=== PATIENT | female | born 1985 | race Caucasian/White ===

== ENCOUNTER 2017-07-29 10:37 | Outpatient (CLI) | payer OTHER ==
--- NOTE | 2017-07-29 16:15 | ULT ---
EXAM: OB ULTRASOUND: HISTORY: A 20-week exam. Evaluate anatomy, size and dates. COMPARISON: None. TECHNIQUE: Sagittal and transverse imaging of the gravid uterus is performed. FINDINGS: Single intrauterine gestation, vertex presentation. heart tones with a rate of 155 b.p.m. Cervical length is 4.9 cm. Posterior placenta. No definite previa. Biometry: BPD 4.44 cm, 19 weeks 3 days Head circumference 17.72 cm, 20 weeks 1 day Abdominal circumference 15.52 cm, 20 weeks 5 days Femur length 3.42 cm, 20 weeks 5 days Average by sonography is 20 weeks 1 day. Estimated weight is 366 gm. Survey: The following structures are adequately demonstrated: lateral ventricle, cord insertion, 3-vessel c ord, nose and lips, and urinary bladder. Limited evaluation of the cerebellum, 4-chamber heart, stomach, spine, and kidneys. Visualized extr emities appear to be unremarkable. IMPRESSION: 1. Single intrauterine gestation with heart tones. Average by sonography is 20 weeks 1 day. 2. survey as above. Examination is limited due to patient body habitus. POS: RIGO
== END 2017-07-29 10:38 | disposition home or self-care (01) ==
LOC: ULT 10:37
PROVIDERS: ATTEND Family Medicine
DX: Z34.82 Encounter for supervision of other normal pregnancy, second trimester (principal); Z3A.19 19 weeks gestation of pregnancy
CPT/HCPCS: 76805

== ENCOUNTER 2017-10-22 14:06 | Outpatient (CLI) | payer OTHER | END 2017-10-22 14:07 | disposition home or self-care (01) | LOC: BICULT 14:06 | PROVIDERS: ATTEND Family Medicine | DX: O36.63X0 Maternal care for excessive fetal growth, third trimester, not applicable or unspecified (principal); Z3A.34 34 weeks gestation of pregnancy | CPT/HCPCS: 36415; 76816; 82951; 82952 ==

== ENCOUNTER 2017-12-09 21:49 | Inpatient (IN) | payer BC, OTHER ==
--- NOTE | 2017-12-09 17:09 | HP ---
HISTORY OF PRESENT ILLNESS: This is a 32-year-old white female G3, P1-0-1-1 at 39-week gestation wit h EDC of 12/13/2017. Patient's course has been uncomplicated. She has a history of 1 spont aneous AB as well as 1 vaginal delivery at 40 weeks, uncomplicated. She lives [address] and concerned about delivering out of the hospital. She is being admitted for an elective Cytote c/Pitocin induction. PAST MEDICAL HISTORY: 1. ADD. 2. Tobacco history which patient has quit. PAST SURGICAL HISTORY: Spontaneous vaginal delivery x1. FAMILY HISTORY: Paternal grandfather with lung cancer. Paternal grandmother with diabetes. SOCIAL HISTORY: She is . She does not smoke, does not drink. She has one son Sticker and a stepson name, Twister. REVIEW OF SYSTEMS: As above. PHYSICAL EXAMINATION: VITAL SIGNS: Stable, afebrile. HEENT: Clear. HEART: Clear. LUNGS: Clear. ABDOMEN: Gravid. EXTREMITIES: With no edema. LABORATORY DATA: GBS negative, 3-hour GTT negative, HIV negative. CBC normal. One-hour HPV negativ e. Pap smear normal. GC chlamydia negative. Urine culture negative, hepatitis B negative, HIV nega tive, B positive blood type, RPR negative, rubella immune. TSH normal. ASSESSMENT: 1. Term . 2. Lives 1 hour away. 3. History of one normal vaginal delivery. PLAN: 1. Routine L&D orders. 2. Routine anesthesia orders. 3. Cytotec plus Pitocin induction. Anticipate normal vaginal delivery.
[2017-12-09] MEDS ORDERED: Ibuprofen 800 MG TAB PO PRN (22:15)
[2017-12-09] MEDS ORDERED: Zolpidem Tartrate 5 MG TAB PO PRN (22:15)
[2017-12-09] MEDS ORDERED: Acetaminophen 500 MG TAB PO PRN (22:15)
[2017-12-09] MEDS ORDERED: LR 500 ML/Oxytocin 10 units 500 ML IV SCH (22:15)
[2017-12-09] MEDS ORDERED: LR / Pitocin 40 units/1000 ml 1,000 ML IV PRN (22:15)
[2017-12-09] MEDS ORDERED: Ondansetron HCl/PF 4 MG/2 ML Vial IVP PRN (22:15)
[2017-12-09] MEDS ORDERED: Misoprostol 200 MCG TAB PR PRN (22:15)
[2017-12-09] MEDS ORDERED: Promethazine HCl 25 MG/ML VIAL IM PRN (22:15)
[2017-12-09] MEDS ORDERED: Acetaminophen/Codeine 30-300mg Tablet PO PRN (22:15)
[2017-12-09] MEDS ORDERED: HYDROcodone/Acetaminophen 5/325 mg Tablet PO PRN (22:15)
[2017-12-09] MEDS ORDERED: Lidocaine 1% (PF) 30 ML VIAL SC PRN (22:15)
[2017-12-09 22:26] VITALS: BMI 37.4
[2017-12-09] MEDS: Lactated Ringer's 1,000 ML IV SCH (22:41)
[2017-12-09] MEDS: Misoprostol 100 MCG TAB VAG SCH (22:51)
[2017-12-09 22:54] LABS: Hemoglobin 11.4 g/dL (12.0-16.0); Mean Corpuscular HGB CONC 34.4 g/dL (32.0-36.0); Mean Corpuscular Hemoglobin 30.8 pg (27.0-31.0); Mean Corpuscular Volume 89.4 fl (81.0-99.0); Mean Platelet Volume 8.4 fL (7.4-10.4); Platelet Count 191 thou/uL (130-400); RBC Distribution Width 11.9 % (11.5-14.5); White Blood Cell (WBC) Count 8.4 thou/uL (4.8-10.8)
[2017-12-09 23:31] LABS: HBSAg Index 0.15 S/CO (0-0.99); Hep B Surf Ag Non-Reactive S/CO (NonReactive); Syphilis Antibody Nonreactive (Nonreactive); Syphilis Antibody Index 0.07 S/CO (<1.00 Non-Reactive)
[2017-12-10] MEDS ORDERED: Bupivacaine 0.5% 20 ML, Fentanyl 400 MCG in Sodium Chloride 0.9% 72 ML EPIDURAL SCH (03:15)
[2017-12-10] MEDS ORDERED: Eucerin (Mineral Oil/Petrolatum,White) 30 gm Jar TOP PRN ×2 (03:47→19:37)
[2017-12-10] MEDS ORDERED: diphenhydrAMINE 50 MG/ML VIAL IVP PRN ×2 (03:47→19:37)
[2017-12-10] MEDS ORDERED: Acetaminophen 325 MG TAB PO PRN (03:47)
[2017-12-10] MEDS ORDERED: Ondansetron HCl/PF 4 MG/2 ML Vial IVP PRN ×4 (03:47→19:37)
[2017-12-10] MEDS ORDERED: Promethazine HCl 25 MG/ML VIAL IM PRN ×3 (03:47→19:37)
[2017-12-10] MEDS ORDERED: Lactated Ringer's 500 ML IV PRN (03:47)
[2017-12-10] MEDS ORDERED: Naloxone HCl 0.4 mg/ml Vial IVP PRN ×4 (03:47→19:37)
[2017-12-10] MEDS ORDERED: ePHEDrine/0.9% NaCl/PF SYRINGE 50 mg/10 ml SLOW IVP PRN (03:47)
[2017-12-10] MEDS ORDERED: Communication Order-Pharmacy FS SCH ×2 (04:00→19:45)
[2017-12-10] MEDS: Lactated Ringer's 1,000 ML IV SCH ×2 (04:04→11:27)
[2017-12-10] MEDS: Misoprostol 100 MCG TAB VAG SCH ×5 (05:50→23:51)
[2017-12-10] MEDS: Fentanyl 4mcg/Marcaine 0.1% Cassette 100 ML EPIDURAL SCH ×2 (10:32→16:47)
[2017-12-10] MEDS ORDERED: Dexamethasone 20 MG/5 ML VIAL ONE (14:51)
[2017-12-10] MEDS ORDERED: Ondansetron HCl/PF 4 MG/2 ML Vial ONE ×2 (14:51→18:44)
[2017-12-10] MEDS ORDERED: Ketorolac Tromethamine 30 MG/ML VIAL ONE ×3 (14:51→20:25)
[2017-12-10] MEDS ORDERED: Lidocaine 2% MPF 10 ML AMP (For Epidural Use) ONE (14:51)
[2017-12-10] MEDS ORDERED: Lidocaine 1% PF 5 ML VIAL ONE (14:51)
[2017-12-10] MEDS ORDERED: Bicitra 30 ML UDCUP PO SCH (18:00)
[2017-12-10] MEDS ORDERED: CEFAZOLIN/Water 2 GM/20 ML SYRINGE SLOW IVP SCH (18:00)
[2017-12-10] MEDS ORDERED: Lidocaine 2% 10 ML INJ ONE (18:19)
[2017-12-10] MEDS ORDERED: Azithromycin 500 MG in Sodium Chloride 0.9% 250 ML 250 ML IVPB SCH (18:30)
[2017-12-10] MEDS ORDERED: Oxytocin 10 UNITS/ML VIAL ONE (18:44)
[2017-12-10] MEDS ORDERED: Dexamethasone 4 mg/ml Vial ONE (18:44)
[2017-12-10] MEDS ORDERED: Morphine PF 1 MG/ML SYR ONE (19:03)
[2017-12-10] MEDS ORDERED: Promethazine HCl 25 MG/ML VIAL SLOW IVP PRN (19:36)
[2017-12-10] MEDS ORDERED: Meperidine HCl/PF 25 MG/ML VIAL SLOW IVP PRN (19:37)
[2017-12-10] MEDS ORDERED: Naloxone HCl 0.4 mg/ml Vial IV PRN (19:37)
[2017-12-10] MEDS ORDERED: Ketorolac Tromethamine 30 MG/ML VIAL IVP PRN (19:37)
[2017-12-10] MEDS ORDERED: Promethazine HCl 25 MG SUPP PR PRN (19:37)
[2017-12-10] MEDS ORDERED: HYDROmorphone 2 MG/ML VIAL SLOW IVP PRN (19:37)
[2017-12-10] MEDS ORDERED: Ketorolac Tromethamine 30 MG/ML VIAL IVP SCH (19:45)
[2017-12-10] MEDS ORDERED: Lanolin Ointment 7 GM TUBE TOP PRN (21:20)
[2017-12-10] MEDS ORDERED: LR w/ Pitocin 40 units/1000 ML BAG IV SCH (21:20)
[2017-12-10] MEDS ORDERED: Adacel (T-DAP) 0.5 ML VIAL IM ONE (21:20)
--- NOTE | 2017-12-10 22:28 | OP ---
DATE OF PROCEDURE: 12/10/2017 PREOPERATIVE DIAGNOSES: 1. Term . 2. Failure to progress. POSTOPERATIVE DIAGNOSES: 1. Term . 2. Failure to progress. 3. Asynclitic presentation. Cord around the body x1, around the arm x1. SURGEON: Winston Handley M.D. QUALITY FACILITATOR: Severo Boone M.D. ANESTHESIA: Epidural. PROCEDURE IN DETAIL: This 32-year-old white female G3, P1 taken to the operating room. She was plac ed in supine position. The abdomen prepped and draped sterilely. Pfannenstiel incision was made. S ubcutaneous was dissected down to fascia. Fascia was opened without incident. Peritoneum was opened by blunt dissection. Bladder flap was dissected inferiorly. Low transverse uterine incision was ma de. Fluid was noted to be clear. Delivered the baby from the asynclitic presentation. Caput is on the parietal lobe of the scalp. Baby did breathe and cry spontaneously upon delivery. Delivered [facility], 3-vessel intact. Closed the uterus in 1 layer of #1 Monocryl. Two [id number] stitches w ere placed to control bleeding. The abdomen was evacuated of all clots. The Christopher O ring was remov ed. The peritoneum was closed with 2-0 chromic. The fascia was closed with 0 Vicryl. The subcu wit h 2-0 chromic and the skin was closed with rachid. Estimated blood loss was 900 mL. Mother and bab y did well.
[2017-12-11 06:06] LABS: Hemoglobin 9.5 g/dL (12.0-16.0); Mean Corpuscular HGB CONC 33.4 g/dL (32.0-36.0); Mean Corpuscular Hemoglobin 30.4 pg (27.0-31.0); Mean Corpuscular Volume 90.9 fl (81.0-99.0); Mean Platelet Volume 8.6 fL (7.4-10.4); Platelet Count 164 thou/uL (130-400); RBC Distribution Width 11.9 % (11.5-14.5); Red Blood Cell (RBC) Count 3.11 mill/uL (4.20-5.40); White Blood Cell (WBC) Count 13.5 thou/uL (4.8-10.8)
[2017-12-11] MEDS: Ferrous Sulfate 325 MG TAB PO SCH ×2 (08:46→21:08)
[2017-12-11] MEDS: Prenatal Vitamin 1 TAB PO SCH (08:47)
[2017-12-11] MEDS ORDERED: Sodium Chloride 0.9% 10 ML ONE (08:59)
--- NOTE | 2017-12-11 13:51 | ADD-OP ---
DATE OF ENCOUNTER: 12/10/2017 This is documentation that Dr. Severo Boone was casting assistant on a performed by Dr. Winston Handley.
[2017-12-11] MEDS: HYDROcodone/Acetaminophen 5/325 mg Tablet PO PRN (17:40)
[2017-12-11] MEDS: Ibuprofen 800 MG TAB PO SCH (21:08)
[2017-12-11] MEDS: Docusate Calcium (SURFAK) 240 MG CAP PO SCH (21:08)
[2017-12-12] MEDS: Ibuprofen 800 MG TAB PO SCH ×3 (05:51→21:13)
[2017-12-12] MEDS: Docusate Calcium (SURFAK) 240 MG CAP PO SCH ×2 (09:14→21:13)
[2017-12-12] MEDS: Ferrous Sulfate 325 MG TAB PO SCH ×2 (09:14→21:13)
[2017-12-12] MEDS: Prenatal Vitamin 1 TAB PO SCH (09:14)
[2017-12-12] MEDS: HYDROcodone/Acetaminophen 5/325 mg Tablet PO PRN ×2 (09:24→21:13)
[2017-12-13] MEDS: Ibuprofen 800 MG TAB PO SCH (05:28)
[2017-12-13] MEDS: HYDROcodone/Acetaminophen 5/325 mg Tablet PO PRN (05:29)
[2017-12-13 08:02] VITALS: BP 109/61; TEMP 98
--- NOTE | 2017-12-13 08:07 | DIS ---
DISCHARGE DIAGNOSES: 1. Term . 2. Failure to progress. 3. Asynclitic presentation. PROCEDURE: Primary low transverse section. SURGEON: Winston Handley M.D. POSTDOCTORAL RESEARCH ASSOCIATE: Dr. Boone. BRIEF HISTORY: This is a 32-year-old white female with an uncomplicated course. She presented at 40 weeks for a Cytotec/Pitocin induction. She lives 1 hour away and was concerned about home delivery. HOSPITAL COURSE: The patient was admitted. She was placed on Cytotec and Pitocin. She progressed t o complete. However, she had failure to progress. heart tones remained reactive. The patient underwent a primary section without complication. Mother and baby did very well. The baby was noted to be in asynclitic presentation. Baby had failed to descend. Postoperatively the patien t did well. She is now ready for discharge. Vital signs stable, afebrile. Discharge H&H is 9.5 and 28.3. The patient will follow up in the office in the next 2 weeks. Hydrocodone will be called out to her pharmacy for pain control. Her wound has also remained clear without drainage throughout her stay.
[2017-12-13] MEDS: Docusate Calcium (SURFAK) 240 MG CAP PO SCH (08:08)
[2017-12-13] MEDS: Prenatal Vitamin 1 TAB PO SCH (08:08)
[2017-12-13] MEDS: Ferrous Sulfate 325 MG TAB PO SCH (08:08)
== END 2017-12-13 11:00 | disposition home or self-care (01) | DRG 766 ==
LOC: L&D 21:49 → 3SW 12-10 21:43
PROVIDERS: ADMIT Family Medicine; ATTEND Family Medicine
PROC: 3E033VJ Introduction of Other Hormone into Peripheral Vein, Percutaneous Approach (ICD-10-PCS; principal; 2017-12-09)
PROC: 3E0P7VZ Introduction of Hormone into Female Reproductive, Via Natural or Artificial Opening (ICD-10-PCS; 2017-12-09)
PROC: 10D00Z1 Extraction of Products of Conception, Low, Open Approach (ICD-10-PCS; 2017-12-10)
PROC: 10907ZC Drainage of Amniotic Fluid, Therapeutic from Products of Conception, Via Natural or Artificial Opening (ICD-10-PCS; 2017-12-10)
DX: O99.343 Other mental disorders complicating pregnancy, third trimester (principal); F98.8 Other specified behavioral and emotional disorders with onset usually occurring in childhood and adolescence; O62.0 Primary inadequate contractions; O69.81X0 Labor and delivery complicated by cord around neck, without compression, not applicable or unspecified; Z3A.39 39 weeks gestation of pregnancy; Z37.0 Single live birth
CPT/HCPCS: 36415; 51702; 76815; 85027; 86780; 86850; 86900; 86901; 87340; A4216; J0456; J1100; J1885; J2001; J2274; J2405; J2590; J3010; J3490; J7050; J7120